=== PATIENT | male | born 1985 | race Caucasian/White ===

== ENCOUNTER 2021-12-10 15:56 | Emergency (ER) | payer SELFPAY ==
[~2021-12-10] VITALS: Ht 177.8 cm; Wt 78.0 kg
[2021-12-10 17:12] LABS: *AMPHETAMINES SCREEN URINE NEGATIVE (NEGATIVE); *BARBITURATES SCREEN URINE NEGATIVE (NEGATIVE); *BENZODIAZEPINES SCREEN URINE NEGATIVE (NEGATIVE); *COCAINE SCREEN URINE NEGATIVE (NEGATIVE); CANNABINOID URINE SCREEN PRESUMTIVE POSITIVE (NEGATIVE); METHADONE URINE SCREEN NEGATIVE (NEGATIVE); OPIATES URINE SCREEN PRESUMTIVE POSITIVE (NEGATIVE); PHENCYCLIDINE URINE SCREEN NEGATIVE (NEGATIVE)
[2021-12-10 17:16] LABS: HEMATOCRIT. 40.1 % (42.0-52.0); HEMOGLOBIN. 13.7 g/dL (14.0-18.0); MEAN CORPUSCULAR HEMOGLOBIN 30.9 pg (28.0-32.0); MEAN CORPUSCULAR VOLUME 90.3 fL (80.0-94.0); MEAN PLATELET VOLUME 7.3 fl (7.4-10.4); PLATELET 196 x1000/uL (130-400); RED BLOOD CELL COUNT 4.44 mill/uL (4.7-6.1); RED CELL DISTRIBUTION WIDTH 13.2 % (11.6-14.6)
[2021-12-10 17:22] LABS: CHLORIDE 100 mEq/L (98-107)
[2021-12-10 17:30] LABS: ETHANOL BLOOD < 10 mg/dL
[2021-12-10 17:58] VITALS: BP 134/79
[2021-12-10 18:29] LABS: PLATELET ESTIMATE NORMAL
== END 2021-12-10 18:00 | disposition home or self-care (01) ==
LOC: ER 15:56
DX: R55 Syncope and collapse (principal); R03.0 Elevated blood-pressure reading, without diagnosis of hypertension; R73.9 Hyperglycemia, unspecified; F11.90 Opioid use, unspecified, uncomplicated; F16.90 Hallucinogen use, unspecified, uncomplicated; F12.90 Cannabis use, unspecified, uncomplicated
CPT/HCPCS: 36415; 80053; 80305; 80320; 82962; 85025; 93005; 99284; G0480